=== PATIENT | male | born 1965 | race Caucasian/White ===

== ENCOUNTER → 2018-07-31 | Outpatient (REF) | payer OTHER ==
[2018-07-31 14:27] LABS: GAMMA GLUTAMYLTRANSPEPTIDASE 89 U/L (15-85)
== END ==
LOC: M LAB REF 13:59
DX: R74.0 Nonspecific elevation of levels of transaminase and lactic acid dehydrogenase [LDH] (principal)

== ENCOUNTER → 2019-06-07 | Outpatient (REF) | payer BC, OTHER | LOC: M LAB REF 10:53 | PROVIDERS: ATTEND Family Medicine | DX: R74.0 Nonspecific elevation of levels of transaminase and lactic acid dehydrogenase [LDH] (principal); K76.0 Fatty (change of) liver, not elsewhere classified ==

== ENCOUNTER 2019-06-18 19:20 | Emergency (ER) | payer BC, OTHER ==
[~2019-06-18] VITALS: Ht 185.4 cm; Wt 145.4 kg
[2019-06-18 19:55] LABS: BASO # 0.1 10^3/uL (0.0-0.2); BASO % 0.7 % (0.0-1.0); EOS # 0.4 10^3/uL (0.0-0.50); HEMATOCRIT 45.3 % (42.0-52.0); LYMPH # 2.1 10^3/uL (1.5-4.5); LYMPH % 15.4 % (24.0-44.0); MEAN CORPUSCULAR HEMOGLOBIN 30.3 pg (27.0-33.0); MEAN CORPUSCULAR HGB CONC 35.3 g/dl (32.0-36.5); MEAN CORPUSCULAR VOLUME 85.8 fl (80.0-96.0); MONO # 1.1 10^3/uL (0.0-0.8); MONO % 7.8 % (0.0-5.0); NEUTROPHILS # 9.8 10^3/uL (1.8-7.7); NEUTROPHILS % 72.7 % (36.0-66.0); PLATELET COUNT, AUTOMATED 332 10^3/uL (150-450); RED BLOOD COUNT 5.28 10^6/uL (4.30-6.10); WHITE BLOOD COUNT 13.5 10^3/uL (4.0-10.0)
[2019-06-18 20:29] LABS: ALT/SGPT 73 U/L (12-78); BILIRUBIN,DIRECT 0.1 MG/DL (0.0-0.2); BILIRUBIN,TOTAL 0.7 MG/DL (0.2-1.0); BLOOD UREA NITROGEN 19 MG/DL (7-18); CALCIUM LEVEL 9.6 MG/DL (8.5-10.1); CARBON DIOXIDE LEVEL 26 MEQ/L (21-32); CHLORIDE LEVEL 103 MEQ/L (98-107); CK-MB VALUE MASS 2.2 NG/ML (<3.6); CPK CREATINE PHOSPHOKINASE 194 U/L (39-308); CREATININE FOR GFR 1.09 MG/DL (0.70-1.30); GLOMERULAR FILTRATION RATE > 60.0 (>56); GLUCOSE, FASTING 139 MG/DL (70-100); LIPASE 151 U/L (73-393); MB/CK RELATIVE INDEX 1.13 (< OR =4); POTASSIUM SERUM 4.1 MEQ/L (3.5-5.1); SODIUM LEVEL 139 MEQ/L (136-145); TOTAL PROTEIN 7.3 GM/DL (6.4-8.2); TROPONIN I < 0.02 NG/ML (< 0.10)
[2019-06-18] MEDS ORDERED: TOUJ300I2 SC (20:45)
[2019-06-18] MEDS ORDERED: OZEM2INJ2 SC (20:45)
[2019-06-18] MEDS ORDERED: METF-877 PO (20:45)
[2019-06-18] MEDS ORDERED: ASPIRIN 81 MG CHEW TABLET PO ONE (20:45)
[2019-06-18] MEDS ORDERED: GLYB25TA PO (20:45)
[2019-06-18] MEDS ORDERED: LIPI20TA PO (20:45)
[2019-06-18] MEDS ORDERED: ZETI10TA16 PO (20:45)
[2019-06-18] MEDS ORDERED: PREV30TA3 PO (20:45)
[2019-06-18] MEDS ORDERED: LISI10TA15 PO (20:45)
[2019-06-18 22:56] LABS: CPK CREATINE PHOSPHOKINASE 180 U/L (39-308); MB/CK RELATIVE INDEX 1.11 (< OR =4); TROPONIN I < 0.02 NG/ML (< 0.10)
[2019-06-18 23:15] VITALS: BP 124/75
--- NOTE | 2019-06-19 07:53 | REP ---
Portable chest, 07:51 p.m., single AP view with the the patient upright: Comparison is the PA and lateral chest dated 11/04/2013. The lung urena are clear. The cardiac size is normal. The aung, mediastinum, and skeletal structures are unremarkable. Impression: Negative portable chest. There is no interval change. Electronically Signed by Issa Daly MD 06/19/2019 07:43 A
--- NOTE | 2019-06-19 10:33 | ECGEPIP ---
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
--- NOTE | 2019-06-19 10:34 | ECGEPIP ---
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
== END 2019-06-18 23:50 | disposition home or self-care (01) ==
LOC: M ED 19:20
DX: R07.89 Other chest pain (principal); I49.3 Ventricular premature depolarization; E11.9 Type 2 diabetes mellitus without complications; I10 Essential (primary) hypertension; E78.5 Hyperlipidemia, unspecified; K44.9 Diaphragmatic hernia without obstruction or gangrene; E66.9 Obesity, unspecified; Z79.899 Other long term (current) drug therapy; Z79.4 Long term (current) use of insulin

== ENCOUNTER → 2019-12-06 | Outpatient (REF) | payer BC ==
[~2019-12-06] MED LIST: GLYB25TA PO; LIPI20TA PO; LISI10TA15 PO; METF-877 PO; OZEM2INJ2 SC; PREV30TA3 PO; TOUJ300I2 SC; ZETI10TA16 PO
== END ==
LOC: M LAB REF 13:25
PROVIDERS: ATTEND Family Medicine
DX: R74.0 Nonspecific elevation of levels of transaminase and lactic acid dehydrogenase [LDH] (principal)

== ENCOUNTER → 2020-04-12 | Outpatient (CLI) | payer BC | LOC: M LABSMTC 09:17 | PROVIDERS: ATTEND Anesthesiology | DX: Z03.818 Encounter for observation for suspected exposure to other biological agents ruled out (principal); Z11.59 Encounter for screening for other viral diseases | CPT/HCPCS: C9803; U0003 ==

== ENCOUNTER → 2020-04-14 | Outpatient (CLI) | payer BC ==
[2020-04-14 12:16] LABS: ALBUMIN 4.1 GM/DL (3.2-5.2); ALT/SGPT 100 U/L (12-78); BILIRUBIN,DIRECT 0.2 MG/DL (0.0-0.2); BILIRUBIN,TOTAL 0.6 MG/DL (0.2-1.0); HEPATITIS B SURFACE ANTIBODY NEGATIVE (POSITIVE); IRON (FE) 96 UG/DL (65-175); PERCENT SATURATION 26.4 % (19.7-50.0); TOTAL IRON BINDING CAPACITY 364 UG/DL (250-450); TOTAL PROTEIN 7.5 GM/DL (6.4-8.2)
[2020-04-14 12:22] LABS: HEPATITIS B SURFACE ANTIGEN NEGATIVE (NEGATIVE)
[2020-04-14 12:51] LABS: HEPATITIS C VIRUS ABY INDEX 0.2 INDEX (<0.8)
[2020-04-16 05:07] LABS: ANTI DOUBLE STRAND-DNA AB <1 IU/mL (0-9); ANTI-MITOCHONDRIAL ANTIBODY <20.0 Units (0.0-20.0); ANTI-SMOOTH MUSCLE ANTIBODY 9 Units (0-19); ANTINUCLEAR ANTIBODIES DIRECT Positive (Negative); HEPATITIS A IgG TOTAL Negative (Negative); IGASUB2 205.3 mg/dL (73.2-301.2); IGASUB3 24.2 mg/dL (13.4-97.9); IgA SERUM (part of Subclasses) 243 mg/dL (90-386); LIVER-KIDNEY MICROSOMAL ABY <20.1 Units (0.0-20.0); RNP ANTIBODIES <0.2 AI (0.0-0.9); SJOGREN'S ANTI SS-A <0.2 AI (0.0-0.9); SJOGREN'S ANTI SS-B <0.2 AI (0.0-0.9); SMITH ANTIBODIES <0.2 AI (0.0-0.9); TISSUE TRANSGLUTAMINASE IgA <2 U/mL (0-3)
== END ==
LOC: M WUC 09:30
PROVIDERS: ATTEND Internal Medicine Gastroenterology
DX: K76.0 Fatty (change of) liver, not elsewhere classified (principal)

== ENCOUNTER 2020-04-15 09:52 | Day surgery (SDC) | payer BC ==
[~2020-04-15] VITALS: Ht 185.4 cm; Wt 140.8 kg
[~2020-04-15 09:52] MED LIST changes: +NS 1,000 ML IV ONE
[2020-04-15] MEDS ORDERED: LIDOCAINE 2% 100MG/5ML SDV (FOR ANES.) As Ordered ONE (10:59)
[2020-04-15] MEDS ORDERED: propofoL 500 MG/50 ML VIAL As Ordered ONE (10:59)
--- NOTE | 2020-04-15 11:34 | ROOR ---
Patient Name: Jens Quiroz Procedure Date: 04/15/2020 10:53 AM Date of : 1965 Age: 54 Room: [facility] Gender: Male Note Status: Finalized Procedure: Colonoscopy Indications: Screening for colorectal malignant neoplasm Providers: Dinesh Mckinney MD Referring MD: Jamil Saavedra MD Requesting Provider: Medicines: Monitored Anesthesia Care Complications: No immediate complications. Procedure: Pre-Anesthesia Assessment: - Prior to the procedure, a History and Physical was performed, and patient medications and allergies were reviewed. The patient is competent. The risks and benefits of the procedure and the sedation options and risks were discussed with the patient. All questions were answered and informed consent was obtained. Patient identification and proposed procedure were verified by the physician, the nurse and the anesthesiologist in the procedure room. Mental Status Examination: alert and oriented. Airway Examination: normal oropharyngeal airway and neck mobility. Respiratory Examination: clear to auscultation. CV Examination: normal. Prophylactic Antibiotics: The patient does not require prophylactic antibiotics. Prior Anticoagulants: The patient has taken no previous anticoagulant or antiplatelet agents. ASA Grade Assessment: III - A patient with severe systemic disease. After reviewing the risks and benefits, the patient was deemed in satisfactory condition to undergo the procedure. The anesthesia plan was to use monitored anesthesia care (MAC). Immediately prior to administration of medications, the patient was re-assessed for adequacy to receive sedatives. The heart rate, respiratory rate, oxygen saturations, blood pressure, adequacy of pulmonary ventilation, and response to care were monitored throughout the procedure. The physical status of the patient was re-assessed after the procedure. The Colonoscope was introduced through the anus and advanced to the terminal ileum, with identification of the appendiceal orifice and IC valve. The colonoscopy was performed without difficulty. The patient tolerated the procedure well. The quality of the bowel preparation was good. The terminal ileum, ileocecal valve, appendiceal orifice, and rectum were photographed. Scope insertion time was 5 minutes. Scope withdrawal time was 9 minutes. The total duration of the procedure was 14 minutes. Findings: The perianal and digital rectal examinations were normal. The terminal ileum appeared normal. Two sessile polyps were found in the recto-sigmoid colon and ascending colon. The polyps were 5 to 6 mm in size. These polyps were removed with a cold snare. Resection and retrieval were complete. Verification of patient identification for the specimen was done by the physician and nurse using the patient's name, date and medical record number. Estimated blood loss was minimal. Multiple small and large-mouthed diverticula were found in the sigmoid colon. There was no evidence of diverticular bleeding. Non-bleeding external and internal hemorrhoids were found during retroflexion. The hemorrhoids were medium-sized. Impression: - The examined portion of the ileum was normal. - Two 5 to 6 mm polyps at the recto-sigmoid colon and in the ascending colon, removed with a cold snare. Resected and retrieved. - Moderate diverticulosis in the sigmoid colon. There was no evidence of diverticular bleeding. - Non-bleeding external and internal hemorrhoids. Recommendation: - Patient has a contact number available for emergencies. The signs and symptoms of potential delayed complications were discussed with the patient. Return to normal activities tomorrow. Written discharge instructions were provided to the patient. - High fiber diet. - Continue present medications. - Use fiber, for example Citrucel, Fibercon, Konsyl or Metamucil. - Await pathology results. - Repeat colonoscopy in 5-10 years for surveillance based on pathology results. - Telephone GI clinic for pathology results in 2 weeks. - Return to primary care physician. Dinesh Mckinney MD Dinesh Mckinney MD 04/15/2020 11:34:12 AM Electronically signed by Dinesh Mckinney MD Number of Addenda: 0 Note Initiated On: 04/15/2020 10:53 AM Estimated Blood Loss: Estimated blood loss was minimal.
[2020-04-15 11:53] VITALS: BP 137/73
== END 2020-04-15 11:54 | disposition home or self-care (01) ==
LOC: M OPP 09:52
PROVIDERS: ATTEND Internal Medicine Gastroenterology
DX: Z12.11 Encounter for screening for malignant neoplasm of colon (principal); K64.8 Other hemorrhoids; K63.5 Polyp of colon; K57.30 Diverticulosis of large intestine without perforation or abscess without bleeding; E11.9 Type 2 diabetes mellitus without complications; I10 Essential (primary) hypertension; Z79.4 Long term (current) use of insulin; Z79.899 Other long term (current) drug therapy

== ENCOUNTER → 2020-10-28 | Outpatient (CLI) | payer SELFPAY ==
[~2020-10-28] MED LIST changes: -NS 1,000 ML IV ONE
== END ==
LOC: M LABSMTC 10:30
PROVIDERS: ATTEND Pediatrics
DX: Z20.828 Contact with and (suspected) exposure to other viral communicable diseases (principal)

== ENCOUNTER → 2023-11-22 | Outpatient (REF) | payer BC ==
[~2023-11-22] MED LIST changes: +EZET10TA58 PO; +GLYB2.5T7 PO; -GLYB25TA PO; -LISI10TA15 PO; +LISI10TA24 PO; -ZETI10TA16 PO
== END ==
LOC: M LAB REF 12:04
PROVIDERS: ATTEND Family Medicine
DX: E11.65 Type 2 diabetes mellitus with hyperglycemia (principal); Z79.4 Long term (current) use of insulin

== ENCOUNTER → 2024-06-21 | Outpatient (CLI) | payer BC | LOC: M RAD 16:28 | PROVIDERS: ATTEND Nurse Practitioner Adult Health | DX: R10.9 Unspecified abdominal pain (principal); K76.0 Fatty (change of) liver, not elsewhere classified ==

== ENCOUNTER 2025-08-13 10:53 | Day surgery (SDC) | payer BC ==
[~2025-08-13] VITALS: Ht 185.4 cm; Wt 135.8 kg
[~2025-08-13 10:53] MED LIST changes: +LIDOCAINE 2% 100 MG/5 ML SDV (FOR ANES.) As Ordered ONE; +PIOG1TAB37 PO; +ROSU10TA61 PO; +SEMA0.257
[2025-08-13 12:18] VITALS: TEMP 98.1
[2025-08-13 12:34] VITALS: BP 156/81; O2SAT 96
== END 2025-08-13 12:41 | disposition home or self-care (01) ==
LOC: M OPP 10:53
PROVIDERS: ATTEND Surgery
DX: K57.30 Diverticulosis of large intestine without perforation or abscess without bleeding (principal); Z86.0100 Personal history of colon polyps, unspecified; Z79.84 Long term (current) use of oral hypoglycemic drugs; Z79.85 Long-term (current) use of injectable non-insulin antidiabetic drugs; Z79.899 Other long term (current) drug therapy